=== PATIENT | female | born 1955 | race Caucasian/White ===

== ENCOUNTER 2016-07-27 10:26 | Inpatient (IN) | payer OTHER ==
[~2016-07-27] VITALS: Ht 172.7 cm; Wt 57.2 kg
--- NOTE | ~2016-07-27 | PR ---
[place], [place] PROGRESS NOTE NAME: VICKIE HICKMAN UNIT #: [id number] ROOM: 315 DOCTOR: TAMMY RO BIRTHDATE: [birth year] DOS: 07/30/2016 CHIEF COMPLAINT: "Good morning." SUMMARY OF VISIT: The patient was assessed in the dining room where she was coming in getting ready for breakfast. She engaged readily in conversation, stating that she is still having to force herself to eat, but this is normal for her that she does use Boost and Ensure when she is at home because she knows that she does not have much of an appetite. MENTAL STATUS: She is alert and oriented to person, place, time. Mood is trending towards euthymic, but there is still some depression, underlying. Affect is still a little flat and blunted in a constricted range. No overt signs of auditory or visual hallucinations, delusions, or paranoia. The patient states she is sleeping fine and starting to feel a little bit better. PLAN: We will continue with the Remeron and Vraylar add today. She seems to be responding well to it. We will continue to monitor. I encouraged her to participate in individual and weeks milieu therapy. We will plan to discharge when stable. KYLE RO CNP CM:PNTRANS [id number] TAMMY RO 07/30/16 1112 interface
--- NOTE | ~2016-07-27 | DS ---
[place], [place] DISCHARGE SUMMARY NAME: [facility] HICKMAN [id number] UNIT #: [id number] ROOM: 315 DOCTOR: VALDEMAR CHONG MD BIRTHDATE: [birth year] DOS: 08/02/2016 CHIEF COMPLAINT: "I am so depressed, I cannot go on like this." HISTORY OF PRESENT ILLNESS: This is a 61-year-old white female who is known to me from a previous psychiatric admission here to the [facility] as well as my private practice in [place]. The patient presented on the day of admission to my office stating that her depression has intensified over the last several weeks to the point where she is actively having suicidal thoughts with the plan. The patient endorsed also anergia, anhedonia, hopeless, helpless feelings, poor sleep and appetite. She has had a 20-pound weight loss in the last several months. She has not been able to cope and her performance on her job has suffered. She is admitted now to rule out organic factors and to stabilize on medication. PAST MEDICAL HISTORY: Remarkable for COPD, essential tremor, GERD, hyperlipidemia, hypothyroidism and vertigo. SUMMARY OF HOSPITAL COURSE: The patient was admitted to the unit where her previous antidepressant and Abilify were discontinued in lieu of Remeron 15 mg at bedtime and then Vraylar 1.5 mg also at bedtime. The Vraylar was increased to 3 mg at bedtime while the Remeron was maintained at its present dose of 15 mg. The Remeron did have a significant positive effect for her in that she was able to fall asleep more quickly, sleep soundly through the night and wake up much more refreshed. The Vraylar also augmented its effectiveness and help stabilize her mood. She had improved sufficiently that she was voicing positive plans for the future, was no longer having the suicidal thoughts and was anxious to return home and carry on her life. MENTAL STATUS AT DISCHARGE: The patient was alert and oriented to person, place, and time. Mood was euthymic. Affect appropriate. There was no symptoms of ricardo or hypomania. There was no overt auditory or visual hallucinations. No delusions, no paranoia. Short, intermediate and long-term memory were fully intact. FINAL DIAGNOSIS: Major depression, recurrent, severe. PLAN: The patient is discharged home. Her prescriptions have been signed and printed and sent with her. She will follow up at [facility]. [place], [place] DISCHARGE SUMMARY NAME: VICKIE HICKMAN UNIT #: [id number] ROOM: 315 DOCTOR: VALDEMAR CHONG MD BIRTHDATE: [birth year] VALDEMAR CHONG MD CM:DISCHARG 1 9 VALDEMAR CHONG MD 08/02/1619 interface
--- NOTE | ~2016-07-27 | PR ---
[place], [place] PROGRESS NOTE NAME: VICKIE HICKMAN UNIT #: [id number] ROOM: 315 DOCTOR: TAMMY RO BIRTHDATE: [birth year] DOS: 07/31/2016 CHIEF COMPLAINT: "Good morning." SUMMARY OF VISIT: The patient was assessed in the dining room where she engaged readily in conversation, good eye contact, voiced that she is feeling much better. She is eating better, that everything was okay. When I asked her how does she feel about possibly being discharged soon, she said "Oh I think, I'm ready. When I asked her if those stressors or issues are still going to be present once she gets discharged, she kind of put her head down and said yes and I asked her if she was ready to deal with those stressors or people and she guess it does kind of overwhelming a little bit. MENTAL STATUS: She is alert and oriented to person, place, and time. Mood is trending towards euthymic. There are still some depressive undertones there, even though she denies it. No overt signs of auditory or visual hallucinations, delusions or paranoia; however, when I did talk to her about the outside stressors, she did tear up a little bit. I did discuss with her to let start thinking about what those outside stressors are and how it is going to be. I remind her that in the setting of the hospital, she is protected, but once we get home as much as we wanted to be home, life kind of gets in the way and she agreed. PLAN: We will continue with the Stacie where they are today. I want her to work individually and in the group therapy and kind of talk about the life outside the hospital floor is going to be like what her stressors are and was going to plan on how she is going to respond to these people in these situations, so that she can be better prepared when she is ready to be discharged. The patient has agreed with this. We will continue to engage in individual and weeks milieu therapy and plan on discharging when stable. KYLE RO CNP CM:PNTRANS [phone] [id number] TAMMY RO 07/31/162050 interface
--- NOTE | ~2016-07-27 | PR ---
[place], [place] PROGRESS NOTE NAME: VICKIE HICKMAN UNIT #: [id number] ROOM: 315 DOCTOR: TAMMY RO BIRTHDATE: [birth year] DOS: 08/01/2016 CHIEF COMPLAINT: "Good morning." SUMMARY OF VISIT: The patient was assessed in her room where she was resting comfortably. She has no voiced complaints. Nursing stated that she did complain of an upset stomach last night, but she states that she is fine. Apparently, she also had mentioned to the nurses that she does not think she could go back to work and was wondering if we would write her an excuse so that she could receive unemployment, she did not bring that up with me whatsoever. MENTAL STATUS: Alert and oriented to person, place, approximate time. Mood is trending towards euthymic. She does have some depressive undertones and some anxious undertones when thinking about being discharged. I did ask her to start thinking about outside stressors and how she is going to deal with that and I do not know if her requesting unemployment was her way of dealing with outside stressors or not. We will keep trying to redirect, engage in individual and weeks milieu therapy. PLAN: I am going to bump up her Vraylar to 3 mg and keep her other medications where they are at for now. We will continue to try to engage in individual and weeks milieu therapy with the plan to discharge when stable. KYLE RO CNP CM:PNTRANS [id number] TAMMY RO 08/01/161834 interface
--- NOTE | ~2016-07-27 | PR ---
[place], [place] PROGRESS NOTE NAME: VICKIE HICKMAN UNIT #: [id number] ROOM: 315 DOCTOR: TAMMY RO BIRTHDATE: [birth year] DOS: 07/29/2016 CHIEF COMPLAINT: "Good morning." SUMMARY OF VISIT: The patient was assessed in the dining room where she was drinking a cup of coffee. She engaged readily in conversation. States that she slept very well last night and is feeling much better. Overall, no issues per nursing. MENTAL STATUS: She is alert and oriented to person, place, and time. Mood still has underlying depression. Affect is little flat, blunted in the constricted range. She remembered me from the private practice, was pleasant and smiled, but then went back to being kind of flat and constricted. PLAN: Dr. Pitt did significant medication changes yesterday. He started her on the Remeron and Vraylar. This seems to have helped substantially with her. I am going to leave the medications where they are and most likely will increase the Vraylar if I need to tomorrow. I encouraged her to eat. She says she has not had much of an appetite, the low dose of Remeron should help to stimulate that. If not, we can make some Boost available to her. Will continue to engage in individual and weeks milieu therapy with the plan to discharge once stable. KYLE RO CNP CM:PNTRANS [phone] TAMMY RO 07/30/16 0104 interface
--- NOTE | ~2016-07-27 | WRIGHTHP ---
[place], [place] PATIENT HISTORY AND PHYSICAL EXAM NAME: VICKIE HICKMAN UNIT #: [id number] ROOM: 315 DOCTOR: VALDEMAR CHONG MD BIRTHDATE: [birth year] DOS: 07/28/2016 INITIAL PSYCHIATRIC EVALUATION CHIEF COMPLAINT: "I am so depressed, I can't go on like this." HISTORY OF PRESENT ILLNESS: This is a 61-year-old white female who is known to me from a previous psychiatric admission here to the [facility] as well as my private practice at [place]. The patient presented on the day of admission to my office stating that her depression has intensified over the last several weeks. During this period of time, she reports poor sleep at night, but having absolutely no energy or desire during the day. She has had a 20-pound weight loss in the last several months. She notes anergia, anhedonia, hopeless, helpless feelings, crying spells, and inability to cope. 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 She feels that if she does not get help soon, she will end her life. She is admitted now to rule out organic factors, to stabilize on medication, to engage in individual and weeks milieu therapy, returning home when stable. PAST MEDICAL HISTORY: Remarkable for COPD and essential tremor, GERD, hyperlipidemia, hypothyroidism and vertigo. MENTAL STATUS: The patient is alert and oriented to person, place, and time. Mood is overwhelmingly depressed. Affect is flat, blunted with constricted range. There is no hypomania or ricardo. There are no overt auditory or visual hallucinations. No delusions are present. No paranoia is present. Short, intermediate, and long-term memory are fully intact. DIAGNOSIS: Major depression, recurrent, severe. PLAN: I have discontinued her previous antidepressant and will start her on Remeron 15 mg at bedtime. Additionally, I will discontinue Abilify and use Vraylar as an adjunctive medication to stimulate the antidepressant. We will start Vraylar at 1.5 mg daily. We will engage her in individual and weeks milieu activity with the ultimate plan to return home when psychiatrically stable. [place], [place] PATIENT HISTORY AND PHYSICAL EXAM NAME: VICKIE HICKMAN NALINI UNIT #: [id number] ROOM: [facility] DOCTOR: VALDEMAR CHONG MD BIRTHDATE: [birth year] VALDEMAR CHONG MD CM:HISPHYS:PATIENT HISTORY AND PHYSICAL EXAMINATION [id number] VALDEMAR CHONG MD 07/28/16 1003 interface
[~2016-07-27 10:26] MED LIST: BRIN20TA PO; CLONAZEPAM0.25 MG PO; CLONAZEPAM2 M1 PO; DIOVAN80 M1 PO; DIVALPROEX SOD250 M1 PO; LAMICTAL100 MG PO; LATU40TA PO; MAALOX UD SUSP.30 ML PO; MOM30 M1 PO; PREVACID30 M1 PO; RISPERDAL3 MG PO; SYNTHROID,LEVO75 MCG PO; XANAX0.5 MG PO
[2016-07-27 10:36] VITALS: BP 128/84
[2016-07-27 11:07] VITALS: BP 184/84
[2016-07-27] MEDS ORDERED: NEXIUM40 MG PO (11:16)
[2016-07-27] MEDS ORDERED: CLONAZEPAM0.5 M2 PO (11:16)
[2016-07-27] MEDS ORDERED: ABILIFY5 MG PO (11:17)
[2016-07-27] MEDS ORDERED: TRAZODONE100 MG PO (11:17)
[2016-07-27] MEDS ORDERED: BENZTROPINE ME0.5 MG PO (11:18)
[2016-07-27] MEDS ORDERED: ASPIRIN81 M1 PO (11:18)
[2016-07-27] MEDS ORDERED: MECLIZINE HCL12.5 MG PO (11:19)
[2016-07-27] MEDS ORDERED: ATORVASTATIN CA10 M1 PO (11:19)
[2016-07-27] MEDS ORDERED: PROAIR HFA8.5 GM INH (11:20)
[2016-07-27 12:12] LABS: BASO % 0.4 % (0.0-1.0); HEMATOCRIT 35.2 % (37.0-47.0); HEMOGLOBIN 11.4 g/dl (12.0-16.0); LYMPH # 1.6 10*3/uL (1.3-4.4); LYMPH % 19.8 % (27.0-41.0); MEAN CELL VOLUME 89.3 fl (81.0-99.0); MEAN CORPUSCULAR HGB 28.9 pg (27.0-31.0); MEAN CORPUSCULAR HGB CONC 32.4 g/dl (33.0-37.0); MEAN PLATELET VOLUME 9.1 fl (9.6-12.3); MONO # 0.5 10*3/uL (0.1-1.0); MONO % 6.6 % (3.0-9.0); NEUT % 72.8 % (47.0-73.0); PLATELET COUNT AUTOMATED 287 10*3/uL (130-400); RED BLOOD COUNT 3.94 10*6/uL (4.10-5.10); RED CELL DISTRI WIDTH 13.5 % (0-14.5); WHITE BLOOD COUNT 8.2 10*3/uL (4.8-10.8)
[2016-07-27 12:45] LABS: ALBUMIN 3.4 gm/dl (3.1-4.5); BILIRUBIN, TOTAL 0.3 mg/dl (0.2-1.0); BUN 17 mg/dl (7-24); CARBON DIOXIDE 31 mmol/L (21-32); CHLORIDE 105 mmol/L (98-107); EST GLOM FILT AFRICAN AMERICAN > 60 ml/min; GLUCOSE 84 mg/dL (65-99); SGOT/AST 13 IU/L (3-35); SGPT/ALT 16 U/L (12-78); SODIUM 142 mmol/L (136-145)
[2016-07-27 12:46] LABS: HEMOGLOBIN A1c 5.7 % (4.8-5.6)
[2016-07-27 12:55] LABS: ALKALINE PHOSPHATASE 84 U/L (45-117); THYROID STIM HORMONE (HS) 0.249 uIU/ml (0.358-4.75); TOTAL PROTEIN 6.3 gm/dL (6.4-8.2)
[2016-07-27 13:10] LABS: FOLIC ACID 11.94 ng/mL (>5.38); VITAMIN D, 25-HYDROXY 38.9 ng/mL (30-100)
[2016-07-27 16:47] LABS: BILIRUBIN NEGATIVE (NEGATIVE); BLOOD NEGATIVE (NEGATIVE); CLARITY CLEAR (CLEAR); COLOR YELLOW (YELLOW); GLUCOSE NEGATIVE (NEGATIVE); KETONE NEGATIVE (NEGATIVE); LEUKO ESTERASE 1+ (NEGATIVE); NITRITE NEGATIVE (NEGATIVE); PH 6.5 (5.0-9.0); PROTEIN NEGATIVE (NEGATIVE); SPECIFIC GRAVITY <= 1.005 (1.005-1.030); UROBILINOGEN 0.2 E.U./dl (0.2-1.0)
[2016-07-27 16:56] LABS: RBC 0-2 rbc/hpf (0-2); URINE AMPHETAMINES < 1000 (1000ng/ml); URINE BARBITURATES < 200 (200ng/ml); URINE COCAINE < 300 (300ng/ml)
[2016-07-27 16:57] LABS: BACTERIA TRACE; EPITHELIAL CELLS 0-2; HYALINE CAST 0-2; URINE REFLEX COMMENT YES (NO)
[2016-07-27 20:00] VITALS: BP 100/42
[2016-07-28 07:55] VITALS: BP 115/61
[2016-07-28 08:20] VITALS: BP 102/60
[2016-07-28 09:09] LABS: FREE T4 1.28 ng/dl (0.76-1.46)
[2016-07-28 20:07] VITALS: BP 90/58
[2016-07-29 07:50] VITALS: BP 102/58
[2016-07-29 20:18] VITALS: BP 90/58
[2016-07-30 08:02] VITALS: BP 115/56
[2016-07-30 19:43] VITALS: BP 84/68
[2016-07-31 08:22] VITALS: BP 116/56
[2016-07-31 19:56] VITALS: BP 106/55
[2016-08-01 07:46] VITALS: BP 106/58
[2016-08-01 21:16] VITALS: BP 106/52
[2016-08-02 07:44] VITALS: BP 109/63
[2016-08-02] MEDS ORDERED: MIRTAZAPINE15 M2 PO (08:55)
[2016-08-02] MEDS ORDERED: VRAYLAR3 MG PO (08:55)
== END 2016-08-02 15:27 | disposition home or self-care (01) | DRG 885 ==
LOC: 3N 10:26
PROVIDERS: Psychiatry & Neurology Psychiatry
DX: F33.3 Major depressive disorder, recurrent, severe with psychotic symptoms (principal); J44.9 Chronic obstructive pulmonary disease, unspecified; K21.9 Gastro-esophageal reflux disease without esophagitis; E78.5 Hyperlipidemia, unspecified; E03.9 Hypothyroidism, unspecified; D64.9 Anemia, unspecified; J45.909 Unspecified asthma, uncomplicated; G25.0 Essential tremor; R42 Dizziness and giddiness; Z90.710 Acquired absence of both cervix and uterus; Z80.0 Family history of malignant neoplasm of digestive organs; Z82.49 Family history of ischemic heart disease and other diseases of the circulatory system; Z79.899 Other long term (current) drug therapy; Z79.51 Long term (current) use of inhaled steroids